=== PATIENT | female | born 1980 | race Two or more races ===

== ENCOUNTER 2020-10-23 08:30 | Observation (INO) | payer SELFPAY ==
[~2020-10-23] VITALS: Ht 167.6 cm; Wt 69.4 kg
== END 2020-10-23 09:48 | disposition home or self-care (01) ==
LOC: LDRP 08:30
PROVIDERS: ADMIT Obstetrics & Gynecology; ATTEND Obstetrics & Gynecology
DX: O48.0 Post-term pregnancy (principal); Z3A.40 40 weeks gestation of pregnancy
CPT/HCPCS: 59025; 76818; 81002; G0378

== ENCOUNTER 2020-10-25 10:20 | Observation (INO) | payer OTHER ==
[~2020-10-25] VITALS: Ht 167.6 cm; Wt 70.3 kg
[2020-10-26] MEDS ORDERED: PRENTAB40 OR (04:18)
== END 2020-10-25 12:44 | disposition home or self-care (01) ==
LOC: LDRP 10:20
PROVIDERS: ADMIT Obstetrics & Gynecology; ATTEND Obstetrics & Gynecology
DX: O48.0 Post-term pregnancy (principal); Z3A.40 40 weeks gestation of pregnancy
CPT/HCPCS: 59025; 76818; 81002; G0378

== ENCOUNTER 2020-10-25 19:48 | Inpatient (IN) | payer SELFPAY ==
[~2020-10-25] VITALS: Ht 167.6 cm; Wt 72.1 kg
[~2020-10-25 19:48] MED LIST: miSOPROStol 50 MCG per PRE-CUT 1/2 TAB PR PRN; miSOPROStol 50 MCG per PRE-CUT 1/2 TAB SL PRN
[2020-10-25] MEDS ORDERED: LIDOCAINE 2%HCL (LOCAL ANESTH.) INJ 20ML MDV ONE (20:03)
[2020-10-25] MEDS ORDERED: OXYTOCIN 10UNIT/ML 1ML VIAL ONE (20:03)
[2020-10-25] MEDS ORDERED: LACT. RINGERS/OXYTOCIN 20UNITS 1,000 ML IV ONE (20:03)
[2020-10-25] MEDS ORDERED: WITCH HAZEL-GLYCERIN PAD TOP ONE (20:03)
[2020-10-25] MEDS ORDERED: PHISODERM TOP SOLN 240ML BTL TOP ONE (20:03)
[2020-10-25] MEDS ORDERED: DERMOPLAST 60ML BOTTLE TOP ONE (20:03)
[2020-10-25] MEDS ORDERED: miSOPROStol 100 mcg TAB ONE (20:03)
[2020-10-25] MEDS ORDERED: METHYLERGONOVINE MALEATE 0.2 MG/ML AMP IM ONE (20:04)
[2020-10-25] MEDS ORDERED: PENICILLIN G POT 5MIL/D5 50ML 50 ML IV ONE ×2 (20:07→20:45)
[2020-10-25] MEDS ORDERED: DERMOPLAST 60ML BOTTLE TOP PRN (20:45)
[2020-10-25] MEDS ORDERED: PHISODERM TOP SOLN 240ML BTL TOP PRN (20:45)
[2020-10-25] MEDS ORDERED: WITCH HAZEL-GLYCERIN PAD TOP PRN (20:45)
[2020-10-25] MEDS ORDERED: LIDOCAINE 2%HCL (LOCAL ANESTH.) INJ 20ML MDV IJ ONE (20:45)
[2020-10-25] MEDS ORDERED: LACTATED RINGER'S 1,000 ML IV SCH (20:45)
[2020-10-25 21:10] LABS: Urine Bacteria NONE SEEN /hpf (None Seen); Urine Blood TRACE /uL (Negative); Urine Specific Gravity 1.004 (1.001-1.035); Urine WBC <1 /hpf (0 - 5)
[2020-10-25 21:14] LABS: Alcohol, Urine < 3.0 mg/dL (0-10); Amphetamine Screen, Urine NEGATIVE (NEGATIVE); Barbiturate Scree,Urine NEGATIVE (NEGATIVE); Benzodiazephine Screen, Urine NEGATIVE (NEGATIVE); Cannabinoid Screen, Urine NEGATIVE (NEGATIVE); Cocaine Screen, Urine NEGATIVE (NEGATIVE); Opiate Scree,Urine NEGATIVE (NEGATIVE); Phencyclidine Screen, Urine NEGATIVE (NEGATIVE)
[2020-10-25 22:21] LABS: Basophils # (auto) 0 10 ^3/uL (0-0.2); Basophils % (auto) 0.3 % (0.0-2.0); Eosinophils # (auto) 0.1 10 ^3/uL (0-0.8); Eosinophils % (auto) 1.4 % (0.0-7.0); Hemoglobin 10.6 g/dL (12.2-16.2); Lymphocytes # (auto) 2.1 10 ^3/uL (0.4-5.4); Mean Corpuscular Hemoglobin 28.4 pg (28.0-32.0); Mean Corpuscular Volume 83.6 fL (80.0-100.0); Monocytes # (auto) 0.7 10 ^3/uL (0-1.3); Monocytes % (auto) 7.6 % (0.0-12.0); Neutrophils # (auto) 6.5 10 ^3/uL (1.6-8.6); Neutrophils % (auto) 68.7 % (37.0-80.0); Nucleated Red Blood Cells % 0.1 %; Platelet Count (auto) 280 10^3/uL (140-450); Red Blood Cells 3.71 10^6/uL (4.0-5.20); Red Cell Distribution Width 13.5 % (11.8-14.3); White Blood Cell 9.5 10^3/uL (4.4-10.8)
[2020-10-25 22:29] LABS: INR 0.93 (0.9-1.15); Partial Thromboplastin Time 23.6 sec (23.0-31.2)
[2020-10-25 22:41] LABS: Albumin 2.5 g/dL (3.4-5.0); BUN/Creatinine Ratio 13.5; Potassium 3.7 mmol/L (3.5-5.1)
[2020-10-25 22:43] LABS: Bilirubin, Total 0.3 mg/dL (0.2-1.0); Total Protein 6.6 g/dL (6.4-8.2)
[2020-10-25 23:00] VITALS: BP 126/65
[2020-10-26] MEDS ORDERED: ACETAMINOPHEN 325 MG TAB PO PRN
[2020-10-26] MEDS ORDERED: OXYTOCIN 20 UNT in SODIUM CHLORIDE 0.9% 1,000 ML IV ONE ×2
[2020-10-26] MEDS ORDERED: IBUPROFEN 600 MG TAB PO PRN
[2020-10-26 02:39] VITALS: BP 111/71
[2020-10-26] MEDS ORDERED: PRENTAB40 OR (04:18)
[2020-10-26 06:48] VITALS: BP 101/63
[2020-10-26 11:27] VITALS: BP 103/68
[2020-10-26 15:30] VITALS: BP 106/71
[2020-10-26 19:20] VITALS: BP 109/71
[2020-10-26 22:05] VITALS: BP 109/71
[2020-10-27 05:07] LABS: RPR Non Reactive (Non Reactive)
== END 2020-10-26 21:50 | disposition home or self-care (01) | DRG 807 ==
LOC: LDRP 19:48
PROVIDERS: ADMIT Obstetrics & Gynecology; ATTEND Obstetrics & Gynecology
PROC: 10E0XZZ Delivery of Products of Conception, External Approach (ICD-10-PCS; principal; 2020-10-25)
DX: O69.81X0 Labor and delivery complicated by cord around neck, without compression, not applicable or unspecified (principal); Z37.0 Single live birth; Z3A.40 40 weeks gestation of pregnancy; Z20.822 Contact with and (suspected) exposure to COVID-19
CPT/HCPCS: 36415; 59025; 59409; 80053; 80307; 81001; 85025; 85610; 85730; 86592; 86850; 86900; 86901; 87426; 96360; 96365; 96366; G0378; J2540; J2590